=== PATIENT | female | born 1985 | race Caucasian/White ===

== ENCOUNTER 2017-07-16 21:22 | Emergency (ER) | payer OTHER ==
[~2017-07-16] VITALS: Ht 160 cm; Wt 65.8 kg
[~2017-07-16 21:22] MED LIST: [UNRECOGNIZED DRUG - REMARK]
[2017-07-16 21:37] VITALS: BP 155/72
--- NOTE | 2017-07-16 21:47 | NUR ---
PT AMBUALTED TO OF2.
[2017-07-16] MEDS ORDERED: METOCLOPRAMIDE 10 MG/2 ML INJ VIAL IVP ONE (21:55)
[2017-07-16] MEDS ORDERED: KETOROLAC 30 MG/ML VIAL IVP ONE (21:55)
[2017-07-16] MEDS ORDERED: diphenhydrAMINE 50 MG/ML VIAL IVP ONE (21:55)
[2017-07-16] MEDS ORDERED: NACL 0.9% 1,000 ML IV ONE (21:55)
--- NOTE | 2017-07-16 22:15 | NUR ---
Patient moved to bed 11.
[2017-07-16 23:36] VITALS: BP 110/70
--- NOTE | 2017-07-16 23:37 | NUR ---
Patient discharged with v/s stable. Written and verbal after care instructions given and explained. Patient alert, oriented and verbalized understanding of instructions. Ambulatory with steady gait. All questions addressed prior to discharge. ID band removed. Patient advised to follow up with PMD. Rx of FIORCET 50MG given. Patient educated on indication of medication including possible reaction and side effects. Opportunity to ask questions provided and answered.
== END 2017-07-16 23:37 | disposition home or self-care (01) ==
LOC: MED 21:22
DX: R51 Headache (principal); R03.0 Elevated blood-pressure reading, without diagnosis of hypertension; R11.0 Nausea; R20.0 Anesthesia of skin
CPT/HCPCS: 81002; 81025; 96361; 96374; 96375; 99284; J1200; J1885; J2765; J7030

== ENCOUNTER 2020-02-21 17:24 | Emergency (ER) | payer OTHER, SELFPAY ==
[~2020-02-21] VITALS: Ht 162.6 cm; Wt 67.1 kg
[2020-02-21 17:30] VITALS: BP 114/77
--- NOTE | 2020-02-21 17:37 | NUR ---
covid-19 swab colleced
--- NOTE | 2020-02-21 17:37 | NUR ---
c/o worsening fatigue, lethargy, headache, tired, 2 episodes of emesis , epigastric discomfort with loss of taste x 5 days
--- NOTE | 2020-02-21 18:58 | NUR ---
TAKEN TO BED 2
--- NOTE | 2020-02-21 19:20 | NUR ---
REPORT RECEIVED FROM ASIA GAY FOR CONTINUATION OF CARE.
[2020-02-21 19:23] LABS: APPEARANCE,URINE HAZY (CLEAR); BILIRUBIN,URINE NEGATIVE (NEGATIVE); BLOOD, URINE NEGATIVE (NEGATIVE); COLOR,URINE YELLOW (YELLOW); LEUKOCYTE ESTERASE ,URINE 1+ (NEGATIVE); NITRITE, URINE NEGATIVE (NEGATIVE); UGLUCOSE NEGATIVE (NEGATIVE)
[2020-02-21 19:24] LABS: BASOPHILS % (AUTO) 0.5 % (0.0-2.0); EOSINOPHILS % (AUTO) 1.1 % (0.0-4.0); HEMATOCRIT 42.9 % (36-48); HEMOGLOBIN 13.8 g/dL (12.0-16.0); LYMPHOCYTES # (AUTO) 1.4 K/uL (2.5-16.5); LYMPHOCYTES % (AUTO) 34.1 % (20.5-51.1); MEAN CORPUSCULAR HEMOGLOBIN 28 pg (27-31); MEAN CORPUSCULAR HGB CONC 32 g/dL (33-37); MEAN CORPUSCULAR VOLUME 87.3 fL (80-94); MONOCYTES # (AUTO) 0.5 K/uL (0.8-1.0); MONOCYTES % (AUTO) 11.1 % (1.7-9.3); NEUTROPHILS # (AUTO) 2.2 K/uL (1.8-7.7); NEUTROPHILS % (AUTO) 53.2 % (42.2-75.2); PLATELET COUNT (AUTO) 179 K/uL (140-450); RED BLOOD CELL COUNT(AUTO) 4.92 MIL/uL (4.20-5.40); RED CELL DISTRIBUTION WIDTH 14.1 % (11.6-13.7); WHITE BLOOD COUNT (AUTO) 4.2 K/uL (4.8-10.8)
[2020-02-21 19:35] LABS: RBC,URINE NONE SEEN /HPF (0-5); WBC,URINE 0-5 /HPF (0-5)
--- NOTE | 2020-02-21 19:35 | NUR ---
PT RESTING IN BED, LOCKED AND IN LOWEST POSITION ,HOB ELEVATD, SIDE RAIL X1 , RR EVEN AND UNLABORED, SAO2 100% , A/O X4 .
[2020-02-21] MEDS: ONDANSETRON 4 MG/2 ML VIAL IVP ONE (19:36)
[2020-02-21] MEDS: KETOROLAC 15 MG/ML VIAL IVP ONE (19:36)
[2020-02-21 19:43] LABS: ALBUMIN 3.3 g/dL (3.4-5.0); ANION GAP 14.7 (8-16); CARBON DIOXIDE 27.3 mmol/L (21-32); CREATININE 0.8 mg/dL (0.6-1.3); TOTAL BILIRUBIN 0.3 mg/dL (0.0-1.0)
[2020-02-21] MEDS ORDERED: DICYCLOMINE HCL LIQUID 10 MG/5 ML UDC ONE (19:43)
[2020-02-21] MEDS ORDERED: LIDOCAINE VISCOUS 2% 20 ML UDC ONE (19:43)
[2020-02-21] MEDS ORDERED: ALUMINUM HYD/MAG/SIMETHICONE 30 ML UDC ONE (19:43)
[2020-02-21] MEDS: DICYCLOMINE HCL LIQUID 20 MG, ALUMINUM HYD/MAG/SIMETHICONE 30 ML, LIDOCAINE VISCOUS 2% ... PO ONE ×3 (19:46)
[2020-02-21 20:17] VITALS: BP 120/80
--- NOTE | 2020-02-21 20:17 | NUR ---
Patient discharged with v/s stable. Written and verbal after care instructions given and explained. Patient alert, oriented and verbalized understanding of instructions. Ambulatory with steady gait. All questions addressed prior to discharge. ID band removed. Patient advised to follow up with PMD. Rx of BENTYL, ZOFRAN AND ACETAMINOPHEN given. Patient educated on indication of medication including possible reaction and side effects. Opportunity to ask questions provided and answered.
== END 2020-02-21 20:17 | disposition home or self-care (01) ==
LOC: MED 17:24
DX: R10.13 Epigastric pain (principal); R11.2 Nausea with vomiting, unspecified
CPT/HCPCS: 36415; 76705; 80053; 81001; 81025; 83690; 84703; 85025; 87086; 96374; 96375; 99284; J1885; J2405; Q0092

== ENCOUNTER 2021-04-02 16:02 | Emergency (ER) | payer SELFPAY ==
[~2021-04-02] VITALS: Ht 160 cm; Wt 66.2 kg
[2021-04-02 16:03] VITALS: BP 129/67
--- NOTE | 2021-04-02 16:05 | NUR ---
PT TAKEN TO BED 7.
--- NOTE | 2021-04-02 16:10 | NUR ---
36YO FEMALE 16WKS AOG C/O ABDOMINAL PAIN RADIATING TO BACK X 3 DAYS. TODAY PAIN GOT WORSE RATE OF 10/10, DESCRIBES CONTRACTIONS. PT REPORTS GREEN DISCHARGE AND VAGINAL DISCOMFORT. DENIES VAGINAL BLEEDING, DENIES N/V/D. DENIES URINARY PROBLEMS. PATIENT REPORTS LAST SEEN OBGYN LAST MONTH, REPORTS VISIT WAS NORMAL. PATIENT PLACED IN GOWN, URINE COLLECTED. MADE AWARE OF PATIENT S/S. PMH: NONE MEDS: NONE NKA LMP: NOVEMBER 2020
--- NOTE | 2021-04-02 16:33 | NUR ---
LABS AT BEDSIDE COLLECTING BLOOD SAMPLES.
--- NOTE | 2021-04-02 16:44 | NUR ---
ULTRASOUND AT BEDSIDE
[2021-04-02 16:46] LABS: EOSINOPHILS # (AUTO) 0.4 K/uL (0-0.4); EOSINOPHILS % (AUTO) 4.4 % (0.0-4.0); HEMATOCRIT 35.8 % (36-48); LYMPHOCYTES # (AUTO) 1.1 K/uL (2.5-16.5); LYMPHOCYTES % (AUTO) 13.1 % (20.5-51.1); MEAN CORPUSCULAR HEMOGLOBIN 29 pg (27-31); MEAN CORPUSCULAR HGB CONC 34 g/dL (33-37); MEAN CORPUSCULAR VOLUME 87.6 fL (80-94); MONOCYTES % (AUTO) 25.1 % (1.7-9.3); NEUTROPHILS # (AUTO) 4.6 K/uL (1.8-7.7); NEUTROPHILS % (AUTO) 57.4 % (42.2-75.2); PLATELET COUNT (AUTO) 254 K/uL (140-450); RED BLOOD CELL COUNT(AUTO) 4.09 MIL/uL (4.20-5.40); RED CELL DISTRIBUTION WIDTH 13.3 % (11.6-13.7)
[2021-04-02] MEDS ORDERED: ACETAMINOPHEN EXTRA STRENGTH 500 MG TAB PO ONE (17:00)
[2021-04-02 17:04] LABS: ALBUMIN 2.4 g/dL (3.4-5.0); ANION GAP 10.7 (8-16); CARBON DIOXIDE 25.6 mmol/L (21-32); CREATININE 0.6 mg/dL (0.6-1.3); POTASSIUM 3.3 mmol/L (3.5-5.1); TOTAL BILIRUBIN 0.1 mg/dL (0.0-1.0)
--- NOTE | 2021-04-02 17:16 | NUR ---
Female Manager Bench accompanied female patient for Pelvic Exam. WET MOUNT COLLECTED AND SENT TO LAB.
[2021-04-02 19:21] VITALS: BP 129/67
--- NOTE | 2021-04-02 19:21 | NUR ---
Patient discharged with v/s stable. Written and verbal after care instructions given and explained. Patient verbalized understanding. Ambulatory with steady gait. ID band removed. All questions addressed prior to discharge. Advised to follow up with PMD.
== END 2021-04-02 19:21 | disposition home or self-care (01) ==
LOC: MED 16:02
DX: R10.2 Pelvic and perineal pain (principal)
CPT/HCPCS: 36415; 76805; 80053; 84702; 85025; 86900; 86901; 87210; 87491; 99284; Q0092

== ENCOUNTER 2021-07-14 07:35 | Observation (INO) | payer MEDICAID, OTHER ==
[~2021-07-14] VITALS: Ht 160 cm; Wt 72.6 kg
[2021-07-14 09:50] LABS: BASOPHILS % (AUTO) 0.3 % (0.0-2.0); EOSINOPHILS # (AUTO) 0.2 K/uL (0-0.4); EOSINOPHILS % (AUTO) 2.2 % (0.0-4.0); HEMATOCRIT 35.1 % (36-48); LYMPHOCYTES # (AUTO) 1.7 K/uL (2.5-16.5); LYMPHOCYTES % (AUTO) 23.2 % (20.5-51.1); MEAN CORPUSCULAR HEMOGLOBIN 30 pg (27-31); MEAN CORPUSCULAR HGB CONC 34 g/dL (33-37); MEAN CORPUSCULAR VOLUME 87.5 fL (80-94); MONOCYTES # (AUTO) 0.4 K/uL (0.8-1.0); MONOCYTES % (AUTO) 5.6 % (1.7-9.3); NEUTROPHILS % (AUTO) 68.7 % (42.2-75.2); PLATELET COUNT (AUTO) 234 K/uL (140-450); RED BLOOD CELL COUNT(AUTO) 4.01 MIL/uL (4.20-5.40); RED CELL DISTRIBUTION WIDTH 14.2 % (11.6-13.7); WHITE BLOOD COUNT (AUTO) 7.3 K/uL (4.8-10.8)
[2021-07-14 10:20] LABS: ALBUMIN 2.1 g/dL (3.4-5.0); CARBON DIOXIDE 25.8 mmol/L (21-32); CREATININE 0.5 mg/dL (0.6-1.3); POTASSIUM 3.8 mmol/L (3.5-5.1); TOTAL BILIRUBIN 0.1 mg/dL (0.0-1.0)
[2021-07-14 10:33] VITALS: BP 104/63
== END 2021-07-14 10:49 | disposition home or self-care (01) ==
LOC: MLD 07:35
PROVIDERS: ADMIT Obstetrics & Gynecology; ATTEND Obstetrics & Gynecology
DX: O26.893 Other specified pregnancy related conditions, third trimester (principal); R10.11 Right upper quadrant pain; Z3A.31 31 weeks gestation of pregnancy
CPT/HCPCS: 36415; 59025; 76705; 80053; 81000; 82150; 83690; 85025; G0378; Q0092

== ENCOUNTER 2022-12-30 18:11 | Observation (INO) | payer OTHER ==
[~2022-12-30] VITALS: Ht 162.6 cm; Wt 67.6 kg
[2022-12-30 18:26] VITALS: BP 99/70
[2022-12-30] MEDS ORDERED: KETOROLAC 30 MG/ML VIAL IM ONE (19:10)
[2022-12-30 19:13] LABS: BASOPHILS % (AUTO) 0.5 % (0.0-2.0); EOSINOPHILS # (AUTO) 0.2 K/uL (0-0.4); EOSINOPHILS % (AUTO) 3.5 % (0.0-4.0); HEMATOCRIT 40.8 % (36-48); HEMOGLOBIN 13.4 g/dL (12.0-16.0); LYMPHOCYTES # (AUTO) 2.2 K/uL (2.5-16.5); LYMPHOCYTES % (AUTO) 32.8 % (20.5-51.1); MEAN CORPUSCULAR HEMOGLOBIN 28 pg (27-31); MEAN CORPUSCULAR HGB CONC 33 g/dL (33-37); MEAN CORPUSCULAR VOLUME 84.5 fL (80-94); MONOCYTES # (AUTO) 0.7 K/uL (0.8-1.0); MONOCYTES % (AUTO) 10.6 % (1.7-9.3); NEUTROPHILS # (AUTO) 3.4 K/uL (1.8-7.7); NEUTROPHILS % (AUTO) 52.6 % (42.2-75.2); PLATELET COUNT (AUTO) 265 K/uL (140-450); RED BLOOD CELL COUNT(AUTO) 4.83 MIL/uL (4.20-5.40); RED CELL DISTRIBUTION WIDTH 14.2 % (11.6-13.7); WHITE BLOOD COUNT (AUTO) 6.5 K/uL (4.8-10.8)
[2022-12-30 19:16] LABS: APPEARANCE,URINE CLEAR (CLEAR); BILIRUBIN,URINE NEGATIVE (NEGATIVE); BLOOD, URINE NEGATIVE (NEGATIVE); COLOR,URINE YELLOW (YELLOW); LEUKOCYTE ESTERASE ,URINE NEGATIVE (NEGATIVE); NITRITE, URINE NEGATIVE (NEGATIVE); PH,URINE 6.5 (5.0-9.0); UGLUCOSE NEGATIVE (NEGATIVE)
[2022-12-30 19:29] LABS: ALBUMIN 3.1 g/dL (3.4-5.0); ANION GAP 8.5 (8-16); CARBON DIOXIDE 29.4 mmol/L (21-32); CREATININE 0.8 mg/dL (0.6-1.3); POTASSIUM 3.9 mmol/L (3.5-5.1); TOTAL BILIRUBIN 0.1 mg/dL (0.0-1.0)
[2022-12-30] MEDS ORDERED: KETOROLAC 30 MG/ML VIAL ONE (20:20)
--- NOTE | 2022-12-30 20:41 | NUR ---
Dr. Roman examining patient.
--- NOTE | 2022-12-30 20:41 | NUR ---
PT TO BED #11
[2022-12-30] MEDS ORDERED: metroNIDAZOLE 500 MG/NS PREMIX 100 ML IV ONE (21:10)
[2022-12-30] MEDS ORDERED: NACL 0.9% 1,000 ML IV ONE (21:10)
--- NOTE | 2022-12-30 21:12 | NUR ---
Dr. Roman explained results and treatment plans.
--- NOTE | 2022-12-30 21:20 | NUR ---
COVID-19 swabs collected and sent to lab.
[2022-12-30] MEDS ORDERED: HYDROcodone/APAP 5/325 MG 1 TAB TAB PO PRN (21:40)
[2022-12-30] MEDS ORDERED: MORPHINE SULFATE 2 MG/ML SYR IVP PRN (21:40)
[2022-12-30] MEDS ORDERED: ONDANSETRON 4 MG/2 ML VIAL IVP PRN (21:40)
[2022-12-30] MEDS ORDERED: cefTRIAXone 1,000 MG VIAL ONE (23:17)
[2022-12-30] MEDS: POTASSIUM CHL 20 MEQ/D5-1/2NS 1,000 ML IV SCH (23:44)
--- NOTE | 2022-12-31 00:21 | NUR ---
Patient appears to be resting comfortably in bed. Vital Signs within normal limits. Respirations even and unlabored.
--- NOTE | 2022-12-31 01:50 | NUR ---
Patient will be admitted to care of Dr. Foley. Admited to [facility]. Will go to room 120A. Belongings list completed. Report to ASIA Ugarte.
--- NOTE | 2022-12-31 01:58 | NUR ---
RECEIVED PATIENT FROM ER NURSE VIA WHEELCHAIR FOR CONTINUITY OF CARE. PATIENT IS ALERT ORIENTED X 4. ADMITTED FOR COMPLAIN OF ABDOMINAL PAIN. PIV INTACT AND PATENT. WILL CONTINUE TO MONITOR
[2022-12-31 04:00] VITALS: BP 98/57
[2022-12-31 05:16] LABS: BASOPHILS % (AUTO) 0.4 % (0.0-2.0); EOSINOPHILS # (AUTO) 0.3 K/uL (0-0.4); EOSINOPHILS % (AUTO) 4.5 % (0.0-4.0); HEMOGLOBIN 12.5 g/dL (12.0-16.0); LYMPHOCYTES # (AUTO) 2.5 K/uL (2.5-16.5); LYMPHOCYTES % (AUTO) 36.6 % (20.5-51.1); MEAN CORPUSCULAR HEMOGLOBIN 28 pg (27-31); MEAN CORPUSCULAR HGB CONC 33 g/dL (33-37); MEAN CORPUSCULAR VOLUME 84.6 fL (80-94); MONOCYTES # (AUTO) 0.8 K/uL (0.8-1.0); MONOCYTES % (AUTO) 11.6 % (1.7-9.3); NEUTROPHILS # (AUTO) 3.2 K/uL (1.8-7.7); NEUTROPHILS % (AUTO) 46.9 % (42.2-75.2); PLATELET COUNT (AUTO) 234 K/uL (140-450); RED BLOOD CELL COUNT(AUTO) 4.49 MIL/uL (4.20-5.40); RED CELL DISTRIBUTION WIDTH 14.2 % (11.6-13.7); WHITE BLOOD COUNT (AUTO) 6.7 K/uL (4.8-10.8)
[2022-12-31 05:36] LABS: CARBON DIOXIDE 28.6 mmol/L (21-32); CREATININE 0.7 mg/dL (0.6-1.3); POTASSIUM 4.6 mmol/L (3.5-5.1)
--- NOTE | 2022-12-31 07:10 | NUR ---
RECEIVED REPORT FROM BIT SHARPENER JAVIER FOR CONTINUITY OF CARE. ASSESSMENT DONE. ALERT AND ORIENTED X 4. RESP. EVEN AND UNLABORED. IVF INFUSING WELL. NO C/O PAIN OR DISCOMFORT. CALL LIGHT KEPT WITHIN REACH. PT WILL MONITOR CLOSELY.
[2022-12-31] MEDS: POTASSIUM CHL 20 MEQ/D5-1/2NS 1,000 ML IV SCH (07:45)
[2022-12-31 08:00] VITALS: BP 96/52
--- NOTE | 2022-12-31 08:47 | NUR ---
PATIENT HAS BEEN SCREENED AND CATEGORIZED LOW NUTRITION RISK. PATIENT WILL BE SEEN WITHIN 7 DAYS OF ADMISSION. 01/06/[address]
[2022-12-31] MEDS ORDERED: metroNIDAZOLE 500 MG/NS PREMIX 100 ML IV SCH (09:00)
--- NOTE | 2022-12-31 09:05 | NUR ---
SEEN BY DR. ESCALONA. RECOMMENDS CLEAR LIQUID DIET, IF TOLERATED ADVANCE DIET AND MAY DISCHARGE. FOLLOW UP WITH DR ESCALONA OUTPATIENT. DR. MURRAY MADE AWARE.
--- NOTE | 2022-12-31 10:32 | NUR ---
ROCEPHIN IV WAS GIVEN BY AIDAN RN. TOLERATED WELL.
--- NOTE | 2022-12-31 11:56 | NUR ---
FLAGYL IV WAS GIVEN BY AIDAN BETANCOURT. TOLERATED WELL.
[2022-12-31] MEDS ORDERED: CIPR250T6 PO (12:30)
[2022-12-31] MEDS ORDERED: METR-520 PO (12:31)
--- NOTE | 2022-12-31 14:20 | NUR ---
PT LEFT. DISCHARGE TO HOME. TRANSPORTED BY PRIVATE VEHICLE, ACCOMPANIED BY HER . AMBULATORY. ALERT AND ORIENTED X 4. RESP. EVEN AND UNLABORED. SKIN INTACT. ID BAND AND IV REMOVED. DISCHARGED PAPERWORKS DISCUSS AND SIGNED BY PT. PERSONAL BELONGINGS TAKEN. NO C/O PAIN OR DISCOMFORT. REMAINS STABLE.
--- NOTE | 2023-01-05 12:43 | NUR ---
late entry: IVPB Ceftriaxone was discontinued at 0930 on 12/31/2022- confirmed with Selwyn RN. Late entry: IVPB Flagyl was discontinued at 1030 on 12/31/2022 per Selwyn RN.
== END 2022-12-31 14:20 | disposition home or self-care (01) ==
LOC: MED 18:11 → MMU 21:45 → MTU 21:45
PROVIDERS: ADMIT Internal Medicine; ATTEND Internal Medicine
DX: K35.80 Unspecified acute appendicitis (principal); Z20.822 Contact with and (suspected) exposure to COVID-19
CPT/HCPCS: 36415; 74176; 76705; 80048; 80053; 81003; 81025; 83690; 83735; 85025; 87081; 87426; 96361; 96365; 96366; 96372; 99285; G0378; J0696; J1885; J3490; J7060; Q0092